=== PATIENT | male | born 1950 | race Caucasian/White ===

== ENCOUNTER → 2017-07-31 | Outpatient (CLI) | payer MEDICARE ==
--- NOTE | 2017-08-02 13:14 | RADIOLOGY REPORT PS360 ---
EXAM: CT LUNG LOW DOSE WO CONTRAST COMPARISON: None HISTORY: Current smoker asymptomatic 6 month follow-up. Up to 30 pack history ==== RADIATION DOSE: CTDI vol(CT dose Index-volume) = 2.95mGy DLP (Dose Length Product) = 16.44 mGy-cm FINDINGS: Indeterminate or Suspicious Lung Nodules(Category3-4B): None. No suspicious nodules or masses Indeterminate/Non-actionable Nodules(Category2): The 3 mm nodule at the left lung apex axial image 15 appears to be partially calcified on today's study an that likely a more definite benign feature. Follow-up in one year the adequate. Likely early granulomatous nodule. . Benign nodules(Category1)Stable benign calcified granuloma at the left upper lobe just over 5 mm size LUNG PARENCHYMA Emphysema: Mild centrilobular emphysematous changes Airways disease: Trace bronchial thickening suggested at centrally. &. Not apparent Fibrosis: Only scant if any fibrotic changes towards posterior sulcus. Negligible. Axillary Less evident than prior study likely reflecting atelectasis previously Bleb formation right posterior sulcus. No pleural lesions or abnormalities OTHER ANATOMIC REGIONS Lymph Nodes: No enlarged lymph nodes evident. Scattered small nodes are present in the mediastinum and milagros Pleura: Unremarkable Cardiac: Fairly extensive Coronary artery calcifications again noted. OTHER FINDINGS: Not of concern Left adrenal noduleStable fat density benign impression abdomen-just less than 2 cm size. IMPRESSION: 1. Lung RADS Category: 2 Tiny 3 mm nodule at the left apex nodule appears fairly dense for size and likely reflects a pressure calcified granuloma on today's study. Follow-up in one year adequate. Small benign granuloma right lung again noted and stable. 2. Other findings: Stable low-density left adrenal nodule. Not of concern RECOMMENDATIONS: 12 monthd LDCT follow-up TECHNIQUE: The exam was performed on a [employer] Light Speed [address] scanner using 3.0 mGy CTDI. A low dose helical CT CHEST was performed on a multi-detector scanner The LDCT was performed in a facility that meets the criteria for the screening program. Data regarding this exam was submitted to ACR which is an approved registry. The order for this exam indicates that it came as a result of a lung cancer screening counseling shard decision-making visit that included all the elements required of such a visit including smoking cessation. The radiologist interpreting this exam meets the CMS criteria for the LDCT lung cancer screening program. The exam is reported using the Lung-RADS classification scale and reported to the ACR registry. NOTE: This study was performed for the specific purposes of lung cancer screening and is not an alternative to diagnostic chest CT.
== END ==
LOC: RAD 07-26 15:15
DX: Z87.891 Personal history of nicotine dependence (principal); Z12.2 Encounter for screening for malignant neoplasm of respiratory organs